=== PATIENT | male | born 1985 | race Caucasian/White ===

== ENCOUNTER 2017-04-27 00:02 | Emergency (ER) | payer SELFPAY ==
[~2017-04-27] VITALS: Ht 177.8 cm; Wt 81.0 kg
[~2017-04-27 00:02] MED LIST: HYDR-906 PO; IBUP-1542 PO; ONDA4TAB8 PO
[2017-04-27 00:06] VITALS: Ht 177.8 cm; Wt 81.0 kg
[2017-04-27] MEDS ORDERED: KETOROLAC 30 MG INJ IV STA (02:06)
[2017-04-27] MEDS ORDERED: ONDANSETRON 4 MG INJ IV STA (02:06)
[2017-04-27 02:07] LABS: URINE BLOOD (Dip) POC Negative (NEGATIVE)
[2017-04-27 02:20] LABS: ADD SCAN DIFF NO
[2017-04-27 02:23] LABS: BASOPHILS % 0.3 % (0.0-2.0); EOSINOPHILS # 0.1 10^3/ul (0.0-0.5); HEMATOCRIT 38.7 % (42.0-52.0); HEMOGLOBIN 13.8 g/dl (14.0-18.0); LYMPHOCYTES # 1.8 10^3/ul (0.8-2.9); LYMPHOCYTES % 20.2 % (15.0-51.0); MEAN CORPUSCULAR HEMOGLOBIN 30.5 pg (29.0-33.0); MEAN CORPUSCULAR HGB CONC 35.7 g/dl (32.0-37.0); MEAN CORPUSCULAR VOLUME 85.4 fl (82.0-101.0); MEAN PLATELET VOLUME 9.7 fl (7.4-10.4); MONOCYTE # 0.8 10^3/ul (0.3-0.9); MONOCYTES % 9.4 % (0.0-11.0); NEUTROPHIL # 6.1 10^3/ul (1.6-7.5); NEUTROPHILS % 68.9 % (39.0-77.0); PLATELET COUNT 237 10^3/UL (140-415); RED BLOOD COUNT 4.53 10^6/ul (4.70-6.10); RED CELL DISTRIBUTION WIDTH 12.7 % (11.5-14.5); WHITE BLOOD COUNT 8.8 10^3/ul (4.8-10.8)
[2017-04-27] MEDS ORDERED: SOD CHLORIDE 0.9% 500 ML IV ONE (02:30)
[2017-04-27 02:42] LABS: ALBUMIN 4.7 g/dl (3.3-4.9); ALBUMIN/GLOBULIN RATIO 1.88; BILIRUBIN,INDIRECT 0.5 mg/dl (0-1.1); BILIRUBIN,TOTAL 0.5 mg/dl (0.2-1.3); CREATININE 0.76 mg/dl (0.61-1.24); POTASSIUM 3.4 mmol/L (3.5-5.1); TOTAL PROTEIN 7.2 g/dl (6.1-8.1)
[2017-04-27 02:43] LABS: ADD UMIC NO; UR ASCORBIC ACID NEGATIVE (NEGATIVE); UR BILIRUBIN (Dip) NEGATIVE (NEGATIVE); UR BLOOD (Dip) NEGATIVE (NEGATIVE); UR CLARITY CLEAR (CLEAR); UR COLOR YELLOW (YELLOW); UR GLUCOSE (Dip) NEGATIVE (NEGATIVE); UR KETONES (Dip) NEGATIVE (NEGATIVE); UR LEUKOCYTE ESTERASE (Dip) NEGATIVE Leu/ul (NEGATIVE); UR NITRITE (Dip) NEGATIVE (NEGATIVE); UR RBC 1 /HPF (0-5); UR SPECIFIC GRAVITY (Dip) 1.018 (1.003-1.030); UR TOTAL PROTEIN (Dip) NEGATIVE (NEGATIVE); UR UROBILINOGEN (Dip) NEGATIVE (NEGATIVE)
--- NOTE | 2017-04-27 04:00 | RADRPT ---
PROCEDURE: CT ABDOMEN/PELVIS WITHOUT CONTRAST CLINICAL INDICATION: 31-year-old male with abdominal pain. TECHNIQUE: The study was performed utilizing a [employer] VCT 64-slice CT scanner. Direct axia l sections were obtained through the abdomen and pelvis without the use of intravenous contrast mate rial. Sagittal and coronal reformations were obtained. One or more of the following dose reduction t echniques were utilized: automated exposure control, adjustment of the mA and/or kV according to pat ient's size or use of iterative reconstruction technique. The images were reviewed on a PACS workst [employer]. CTD/vol = 12.1 mGy; Total Exam DLP = 785.9 mGy-cm. COMPARISON: CT abdomen/pelvis October 25, 2016. FINDINGS: There is mild bibasilar subsegmental atelectasis. There is no evidence for significant pleural effu declan. The liver has a normal size and contour without focal areas of abnormal density. No intrahepa tic nor extrahepatic biliary ductal dilatation is seen. The gallbladder collapsed without evidence f or calcified stones or significant wall thickening. The pancreas is without areas of abnormal attenu ation. The spleen is identified and has a normal size without abnormal density. The adrenal glands are unremarkable. The kidneys are without abnormal density. No hydroureteronephrosis nor nephrourete rolithiasis is evident. The urinary bladder contains urine. There is retained stool identified withi n the colon without obstruction. The appendix is retrocecal. There is no definite abnormal thicken ing. There is extensive inflammatory changes within the region of the hepatic flexure with minimal free fluid. This is most suggestive of epiploic appendagitis. There is no significant pelvic free fluid. The aortoiliac vessels are without aneurysmal dilatation. The osseous structures are intact. IMPRESSION: 1. No CT evidence for obstructive uropathy or renal calculi. 2. Extensive focal inflammatory changes within the right upper quadrant adjacent to the hepatic fle xure with minimal free fluid most suggestive of epiploic appendagitis. Note that the tip of the lauren endix is adjacent to this region and tip appendicitis cannot be totally excluded however the rest of the appendix has a normal appearance and this is unlikely. Clinical correlation is suggested. 3. Retained stool without obstruction. .Kofi Jones MD, MD Date Time Electronically viewed and signed by .Kofi Jones MD, MD on 04/27/2017 04:00 .M/
[2017-04-27] MEDS ORDERED: NAPR-688 PO (04:35)
[2017-04-27] MEDS ORDERED: ONDA4TAB8 PO (04:35)
[2017-04-27] MEDS ORDERED: POLY17PO6 PO (04:38)
[2017-04-27 04:45] VITALS: BP 130/82; PULSE 83; RESP 16
--- NOTE | 2017-04-27 04:53 | ERD ---
ER Documentation Chief Complaint Date/Time DATE: 04/27/17 TIME: 04:41 Chief Complaint RUQ abd pain x 1 day HPI 41-year-old male presents with 1 day of right upper quadrant abdominal pain. He had some nausea and vomited after drinking water. He has had no blood in his vomit. He said no fever or chills. No diarrhea. ROS All systems reviewed and are negative except as per history of present illness. Medications Home Meds Active Scripts Polyethylene Glycol* (Miralax*) 17 Gm Powd.pack, 17 GM PO DAILY, #7 Prov:VERONIKA ZURITA DO 04/27/17 Ondansetron Hcl* (Zofran*) 4 Mg Tablet, 4 MG PO Q6H for NAUSEA AND/OR VOMITING, #20 Prov:VERONIKA ZURITA DO 04/27/17 Naproxen* (Naproxen*) 500 Mg Tablet, 500 MG PO BID Y for PAIN, #20 TAB Prov:VERONIKA ZURITA DO 04/27/17 Ondansetron Hcl* (Zofran*) 4 Mg Tablet, 4 MG PO Q6H for NAUSEA AND/OR VOMITING, #30 TAB Prov:SHARIF FRAZIER C 10/25/16 Ibuprofen* (Motrin*) 600 Mg Tab, 600 MG PO Q6, #30 TAB Prov:SHARIF FRAZIER C 10/25/16 Hydrocodone/Acetaminophen ([place] 5-325 Tablet) 1 Each Tablet, 1 TAB PO Q6H Y for PAIN, #15 TAB Prov:FREDDIESHARIF LOPEZ C 10/25/16 PMhx/Soc Medical and Surgical Hx: pt denies Medical Hx, pt denies Surgical Hx History of Surgery: No Anesthesia Reaction: No Hx Neurological Disorder: No Hx Respiratory Disorders: No Hx Cardiac Disorders: No Hx Psychiatric Problems: No Hx Miscellaneous Medical Probl: No Hx Alcohol Use: No Hx Substance Use: No Hx Tobacco Use: No Smoking Status: Unknown if ever smoked Physical Exam Vitals Vital Signs Date Time Temp Pulse Resp B/P Pulse Ox O2 Delivery O2 Flow Rate FiO2 04/27/17 03:20 84 16 124/70 99 04/27/17 00:06 98.5 103 20 138/83 98 Physical Exam Const: [] Mild distress Head: Atraumatic Eyes: Normal Conjunctiva ENT: Normal External Ears, Nose and Mouth. Neck: Full range of motion..~ No meningismus. Resp: Clear to auscultation bilaterally Cardio: Regular rate and rhythm, no murmurs Abd: Soft, very mild right upper quadrant abdominal tenderness without guarding or rebound non distended. Normal bowel sounds Skin: No petechiae or rashes Back: No midline or flank tenderness Ext: No cyanosis, or edema Neur: Awake and alert and oriented 3, no focal deficits Psych: Normal Mood and Affect Result Diagram: 04/27/17 0205 04/27/17 0205 Results 24 hrs Laboratory Tests Test 04/27/17 02:00 04/27/17 02:05 04/27/17 02:10 Urine Color YELLOW Urine Clarity CLEAR Urine pH 9.0 Urine Specific [place] 1.018 Urine Ketones NEGATIVEmg/dL Urine Nitrite NEGATIVEmg/dL Urine Bilirubin NEGATIVEmg/dL Urine Urobilinogen NEGATIVEmg/dL Urine Leukocyte Esterase NEGATIVELeu/ul Urine Microscopic RBC 1/HPF Urine Microscopic WBC 1/HPF Urine Hemoglobin NEGATIVEmg/dL Urine Glucose NEGATIVEmg/dL Urine Total Protein NEGATIVEmg/dl White Blood Count 8.810^3/ul Red Blood Count 4.5310^6/ul Hemoglobin 13.8g/dl Hematocrit 38.7% Mean Corpuscular Volume 85.4fl Mean Corpuscular Hemoglobin 30.5pg Mean Corpuscular Hemoglobin Concent 35.7g/dl Red Cell Distribution Width 12.7% Platelet Count 27708^3/UL Mean Platelet Volume 9.7fl Neutrophils % 68.9% Lymphocytes % 20.2% Monocytes % 9.4% Eosinophils % 1.0% Basophils % 0.3% Nucleated Red Blood Cells % 0.0/100WBC Neutrophils # 6.110^3/ul Lymphocytes # 1.810^3/ul Monocytes # 0.810^3/ul Eosinophils # 0.110^3/ul Basophils # 0.010^3/ul Nucleated Red Blood Cells # 0.010^3/ul Sodium Level 141mmol/L Potassium Level 3.4mmol/L Chloride Level 106mmol/L Carbon Dioxide Level 26mmol/L Anion Gap 12 Blood Urea Nitrogen 16mg/dl Creatinine 0.76mg/dl Glucose Level 114mg/dl Calcium Level 9.0mg/dl Total Bilirubin 0.5mg/dl Direct Bilirubin 0.00mg/dl Indirect Bilirubin 0.5mg/dl Aspartate Amino Transf (AST/SGOT) 38IU/L Alanine Aminotransferase (ALT/SGPT) 62IU/L Alkaline Phosphatase 83IU/L Total Protein 7.2g/dl Albumin 4.7g/dl Globulin 2.50g/dl Albumin/Globulin Ratio 1.88 Lipase 130U/L Bedside Urine pH (LAB) 8.5 Bedside Urine Protein (LAB) 2+ Bedside Urine Glucose (UA) Negative Bedside Urine Ketones (LAB) Negative Bedside Urine Blood Negative Bedside Urine Nitrite (LAB) Negative Bedside Urine Leukocyte Esterase (L Negative Current Medications Medications (Trade) Dose Ordered Sig/Warren Route PRN Reason Start Time Stop Time Status Last Admin Dose Admin Ketorolac Tromethamine (Toradol) 30 mg ONCE STAT IV 04/27/17 02:06 04/27/17 02:10 DC 04/27/17 02:18 Ondansetron HCl 4 mg 4 mg ONCE STAT IV 04/27/17 02:06 04/27/17 02:10 DC 04/27/17 02:18 Sodium Chloride (NS) 500 ml @ 500 mls/hr Q1H ONCE IV 04/27/17 02:30 04/27/17 03:29 DC 04/27/17 02:18 Procedures/MDM Epiploic appendagitis and constipation. Symptoms may be due to either one however pain at meningitis is in the right upper quadrant. Patient was given 2 mg of morphine as well as Zofran. He was taking good p.o. and felt much better. No concerning laboratories. A doubt serious bacterial infection. I am going to discharge him with naproxen, MiraLAX, Zofran. Also giving instructions to follow-up with the primary care doctor for general surgery referral. Explained to this to him and his mother any pain of the CAT scan results and encircled epiploic appendagitis. C T abdomen pelvis interpretation: Right upper quadrant epiploic appendage otitis as well as retained stool throughout the colon without any bowel obstruction, I see no free air. I see no fractures. Departure Diagnosis: Primary Impression: Epiploic appendagitis Additional Impressions: Abdominal pain Constipation Vomiting Condition: Stable Patient Instructions: Abdominal Pain, Vomiting (8Y-Adult) Referrals: COMM[facility]ITY CLIN[facility] YOU HAVE RECEIVED A MEDICAL SCREENING EXAM AND THE RESULTS INDICATE THAT YOU DO NOT HAVE A CONDITION THAT REQUIRES URGENT TREATMENT IN THE EMERGENCY DEPARTMENT. FURTHER EVALUATION AND TREATMENT OF YOUR CONDITION CAN WAIT UNTIL YOU ARE SEEN IN YOUR DOCTORS OFFICE WITHIN THE NEXT 1-2 DAYS. IT IS YOUR RESPONSIBILITY TO MAKE AN APPOINTMENT FOR FOLOW-UP CARE. IF YOU HAVE A PRIMARY DOCTOR --you should call your primary doctor and schedule an appointment IF YOU DO NOT HAVE A PRIMARY DOCTOR YOU CAN CALL OUR PHYSICIAN REFERRAL HOTLINE AT IF YOU CAN NOT AFFORD TO SEE A PHYSICIAN YOU CAN CHOSE FROM THE FOLLOWING [facility] [address] [facility] [address] [facility] [address] [facility] [address] [facility] [address] [facility]. [facility]. [address] Additional Instructions: Llame al doctor MAANA y yasmani pham CARMELITA PARA DENTRO DE 2-3 CONTRERAS.Dgale a la secretaria que nosotros le instruimos hacer esta carmelita.Avise o llame si rice condicin se empeora antes de la carmelita. Regresa aqui si peor o no mejor. VERONIKA ZURITA DO Apr 27, 2017 04:53
== END 2017-04-27 04:50 | disposition home or self-care (01) ==
LOC: E/R 00:02
DX: K63.89 Other specified diseases of intestine (principal); K59.00 Constipation, unspecified; R11.10 Vomiting, unspecified
CPT/HCPCS: 36415; 74176; 80053; 81003; 83690; 85025; 96374; 96375; 99285; J1885; J2405; J7040